=== PATIENT | male | born 1970 | race Caucasian/White ===

== ENCOUNTER → 2018-11-22 | Outpatient (CLI) | payer BC | LOC: GMAJS 11:39 | PROVIDERS: ATTEND Physician Assistant | DX: R03.0 Elevated blood-pressure reading, without diagnosis of hypertension (principal) ==

== ENCOUNTER → 2018-11-23 | Outpatient (CLI) | payer BC | LOC: LAB.O 10:49 | PROVIDERS: ATTEND Physician Assistant | DX: D45 Polycythemia vera (principal) ==